=== PATIENT | male | born 1975 | race Caucasian/White ===

== ENCOUNTER 2017-09-23 16:49 | Emergency (ER) | payer SELFPAY ==
[~2017-09-23] VITALS: Ht 177.8 cm; Wt 85.0 kg
[2017-09-23] MEDS ORDERED: IOHEXOL 350 MG/ML 10 ML VIAL (for RAD DIAG) IVCONTRAST ONE (16:50)
--- NOTE | 2017-09-23 17:21 | PD ---
HPI Chief Complaint: Rectal bleeding, syncope Time Seen by Provider: 17:00 Travel History International Travel<30 days: No Contact w/Intl Traveler<30days: No History of Present Illness HPI 42-year-old male patient with family history of colon cancer, here because he states that he thinks he has rectal cancer, apparently states that he was told that this could be a possibility [place], and had come to the hospital today because he states that he started having rectal bleeding, dark blood in his underwear, bleeding about half a cup today, and had a syncopal episode hitting his head. He did have a loss consciousness, complaining of neck pain, denies any other injuries. Modifying Factors: None Associated Signs & Symptoms: Rectal bleeding, syncope Risk Factors: Family history of colon cancer PFSH Social History Tobacco Use: No Allergies-Medications (Allergen,Severity, Reaction): Coded Allergies: No Known Allergies (Unverified , 09/23/17) Review of Systems Except as stated in HPI: all other systems reviewed are Neg Physical Exam Narrative GENERAL: Well-developed middle-age male patient currently in mild distress. Awake and oriented 3. SKIN: Focused skin assessment warm/dry. HEAD: Atraumatic. Normocephalic. EYES: Pupils equal and round. No scleral icterus. No injection or drainage. ENT: No nasal bleeding or discharge. Mucous membranes pink and moist. NECK: Trachea midline. No JVD. Supple. CARDIOVASCULAR: Regular rate and rhythm. No murmur appreciated. RESPIRATORY: No accessory muscle use. Clear to auscultation. Breath sounds equal bilaterally. GASTROINTESTINAL: Abdomen soft, non-tender, nondistended. Hepatic and splenic margins not palpable. RECTAL EXAM: No masses or tenderness, stool is brown. Trace Hemoccult positive. MUSCULOSKELETAL: No obvious deformities. No clubbing. No cyanosis. No edema. NEUROLOGICAL: Awake and alert. No obvious cranial nerve deficits. Motor grossly within normal limits. Normal speech. PSYCHIATRIC: Appropriate mood and affect; insight and judgment normal. Data Data Last Documented VS Vital Signs Date Time Temp Pulse Resp B/P (MAP) Pulse Ox O2 Delivery O2 Flow Rate FiO2 09/23/17 17:49 97 Room Air 09/23/17 17:46 98.7 69 18 131/71 (91) Orders Orders Complete Blood Count With Diff (09/23/17 17:00) Comprehensive Metabolic Panel (09/23/17 17:00) Lipase (09/23/17 17:00) Prothrombin Time / Inr (Pt) (09/23/17 17:00) Act Partial Throm Time (Ptt) (09/23/17 17:00) Type And Screen (09/23/17 17:00) Ecg Monitoring (09/23/17 17:00) Iv Access Insert/Monitor (09/23/17 17:00) Oximetry (09/23/17 17:00) Ct Brain W/O Iv Contrast(Rout) (09/23/17 17:00) Ct Abd/Pel W Iv Contrast(Rout) (09/23/17 17:00) Ct Cerv Spine W/O Contrast (09/23/17 17:00) Electrocardiogram (09/23/17 17:00) Ckmb (Isoenzyme) Profile (09/23/17 17:00) Troponin I (09/23/17 17:00) Chest, Single Ap (09/23/17 17:00) CKMB (09/23/17 17:10) CKMB% (09/23/17 17:10) Iohexol 350 Inj (Omnipaque 350 Inj) (09/23/17 16:50) Acetaminophen (Tylenol) (09/23/17 18:45) Ed Discharge Order (09/23/17 18:48) Labs Laboratory Tests Test 09/23/17 17:10 White Blood Count 5.4 TH/MM3 Red Blood Count 4.94 MIL/MM3 Hemoglobin 15.9 GM/DL Hematocrit 44.1 % Mean Corpuscular Volume 89.3 FL Mean Corpuscular Hemoglobin 32.1 PG Mean Corpuscular Hemoglobin Concent 36.0 % Red Cell Distribution Width 13.4 % Platelet Count 259 TH/MM3 Mean Platelet Volume 6.6 FL Neutrophils (%) (Auto) 52.4 % Lymphocytes (%) (Auto) 35.8 % Monocytes (%) (Auto) 8.4 % Eosinophils (%) (Auto) 2.3 % Basophils (%) (Auto) 1.1 % Neutrophils # (Auto) 2.8 TH/MM3 Lymphocytes # (Auto) 1.9 TH/MM3 Monocytes # (Auto) 0.5 TH/MM3 Eosinophils # (Auto) 0.1 TH/MM3 Basophils # (Auto) 0.1 TH/MM3 CBC Comment DIFF FINAL Differential Comment Prothrombin Time 9.4 SEC Prothromb Time International Ratio 0.9 RATIO Activated Partial Thromboplast Time 23.1 SEC Blood Urea Nitrogen 11 MG/DL Creatinine 1.06 MG/DL Random Glucose 124 MG/DL Total Protein 7.2 GM/DL Albumin 3.8 GM/DL Calcium Level 9.0 MG/DL Alkaline Phosphatase 87 U/L Aspartate Amino Transf (AST/SGOT) 36 U/L Alanine Aminotransferase (ALT/SGPT) 59 U/L Total Bilirubin 0.2 MG/DL Sodium Level 140 MEQ/L Potassium Level 4.2 MEQ/L Chloride Level 104 MEQ/L Carbon Dioxide Level 24.6 MEQ/L Anion Gap 11 MEQ/L Estimat Glomerular Filtration Rate 76 ML/MIN Total Creatine Kinase 101 U/L Creatine Kinase MB 1.3 NG/ML Troponin I LESS THAN 0.02 NG/ML Lipase 196 U/L MDM Medical Decision Making Medical Screen Exam Complete: Yes Emergency Medical Condition: Yes Medical Record Reviewed: Yes Interpretation(s) EKG shows NSR, no ST elevation or depression, and no arrhythmias. No significant T-wave inversions. Laboratory Tests Test 09/23/17 17:10 Mean Platelet Volume 6.6 FL (7.0-11.0) Monocytes (%) (Auto) 8.4 % (0.0-8.0) Prothrombin Time 9.4 SEC (9.8-11.6) Activated Partial Thromboplast Time 23.1 SEC (24.3-30.1) Random Glucose 124 MG/DL (74-106) Estimat Glomerular Filtration Rate 76 ML/MIN (>89) Troponin I LESS THAN 0.02 NG/ML Differential Diagnosis GI bleed versus rectal or colon cancer versus hemorrhoidal bleeding Narrative Course Lab work and CAT scan was fairly unremarkable for any signs of acute processes. His H&H is stable and vital signs are stable. EKG did not show any signs of dysrhythmias. He has only trace positive Hemoccult. At this point, patient will need further workup for this issue and I will refer him to see colorectal regarding this problem. Return for any worsening in bleeding, further syncopal episodes, or new issues as needed. The plan has been discussed with him and he states understanding. [facility] Point of Care Internal Pos. & Neg. Controls: Passed Fecal Specimen Occult Blood: Positive (Only trace) Diagnosis Primary Impression: Syncope Additional Impression: Rectal bleeding Referrals: Taylor Hannah MD Disposition: 01 DISCHARGE HOME Condition: Stable Kurtis Doss MD Sep 23, 2017 17:21
[2017-09-23 17:27] LABS: AUTOMATED NEUTROPHIL # 2.8 TH/MM3 (1.8-7.7); BASOPHIL # 0.1 TH/MM3 (0-0.2); BASOPHIL % 1.1 % (0.0-2.0); EOSINOPHIL # 0.1 TH/MM3 (0-0.4); EOSINOPHIL % 2.3 % (0.0-4.0); HEMATOCRIT 44.1 % (39.0-51.0); HEMOGLOBIN 15.9 GM/DL (13.0-17.0); LYMPH % 35.8 % (9.0-44.0); LYMPHOCYTE # 1.9 TH/MM3 (1.0-4.8); MEAN CELL VOLUME 89.3 FL (80.0-100.0); MEAN CORPUSCULAR HEMOGLOBIN 32.1 PG (27.0-34.0); MEAN PLATELET VOLUME 6.6 FL (7.0-11.0); MONO % 8.4 % (0.0-8.0); MONOCYTE # 0.5 TH/MM3 (0-0.9); NEUT % 52.4 % (16.0-70.0); PLATELET COUNT 259 TH/MM3 (150-450); RED BLOOD COUNT 4.94 MIL/MM3 (4.50-5.90); RED CELL DISTRIBUTION WIDTH 13.4 % (11.6-17.2); WHITE BLOOD COUNT 5.4 TH/MM3 (4.0-11.0)
[2017-09-23 17:38] LABS: INTERNATIONAL NORMALIZED RATIO 0.9 RATIO; PROTHROMBIN TIME - PATIENT 9.4 SEC (9.8-11.6)
--- NOTE | 2017-09-23 17:45 | RADRPT ---
EXAM DATE/TIME: 09/23/2017 17:19 [facility] COMPARISON: No previous studies available for comparison. INDICATIONS : Syncope. Shortness of breath. MEDICAL HISTORY : None. SURGICAL HISTORY : None. ENCOUNTER: Initial ACUITY: 1 day PAIN SCORE: 0/10 LOCATION: Bilateral chest FINDINGS: A single view of the chest demonstrates the lungs to be symmetrically aerated without evidence of mas s, infiltrate or effusion. The cardiomediastinal contours are unremarkable. Osseous structures are intact. CONCLUSION: No acute disease. Jimbo Adam MD on September 23, 2017 at 17:42 Board Certified Radiologist. This report was verified electronically.
[2017-09-23 17:46] VITALS: BP 131/71; PULSE 69; RESP 18; TEMP 98.7; O2SAT 97
[2017-09-23 17:49] VITALS: O2SAT 97
[2017-09-23 17:49] LABS: ALT (GPT) 59 U/L (12-78)
[2017-09-23 17:53] LABS: ALKALINE PHOSPHATASE 87 U/L (45-117); TOTAL BILIRUBIN ADULT 0.2 MG/DL (0.2-1.0); TOTAL PROTEIN 7.2 GM/DL (6.4-8.2); TROPONIN I LESS THAN 0.02 NG/ML (0.02-0.05)
[2017-09-23 17:55] LABS: ALBUMIN 3.8 GM/DL (3.4-5.0); AST (GOT) 36 U/L (15-37); BICARBONATE 24.6 MEQ/L (21.0-32.0); BLOOD UREA NITROGEN 11 MG/DL (7-18); CHLORIDE 104 MEQ/L (98-107); CREATININE 1.06 MG/DL (0.60-1.30); GLOMERULAR FILTRATION RATE 76 ML/MIN (>89); GLUCOSE,RANDOM 124 MG/DL (74-106); SODIUM (NA) 140 MEQ/L (136-145)
--- NOTE | 2017-09-23 18:33 | RADRPT ---
EXAM DATE/TIME: 09/23/2017 18:13 [facility] COMPARISON: No previous studies available for comparison. INDICATIONS : Trauma, fall today. RADIATION DOSE: 55.68 CTDIvol (mGy) MEDICAL HISTORY : None SURGICAL HISTORY : None. ENCOUNTER: Initial ACUITY: 1 day PAIN SCALE: 5/10 LOCATION: Bilateral head TECHNIQUE: Multiple contiguous axial images were obtained of the head. Using automated exposure control and adj ustment of the mA and/or kV according to patient size, radiation dose was kept as low as reasonably a chievable to obtain optimal diagnostic quality images. DICOM format image data is available electro nically for review and comparison. FINDINGS: CEREBRUM: The ventricles are normal for age. No evidence of midline shift, mass lesion, hemorrhage or acute in farction. No extra-axial fluid collections are seen. POSTERIOR FOSSA: The cerebellum and brainstem are intact. The 4th ventricle is midline. The cerebellopontine angle i s unremarkable. EXTRACRANIAL: The visualized portion of the orbits is intact. SKULL: The calvaria is intact. No evidence of skull fracture. CONCLUSION: Normal examination. Jimbo Adam MD on September 23, 2017 at 18:29 Board Certified Radiologist. This report was verified electronically.
--- NOTE | 2017-09-23 18:43 | RADRPT ---
EXAM DATE/TIME: 09/23/2017 18:13 [facility] COMPARISON: No previous studies available for comparison. INDICATIONS : Trauma, fall today. RADIATION DOSE: 16.00 CTDIvol (mGy) MEDICAL HISTORY : None SURGICAL HISTORY : None. ENCOUNTER: Initial ACUITY: 1 day PAIN SCALE: 5/10 LOCATION: Bilateral neck TECHNIQUE: Volumetric scanning of the cervical spine was performed. Multiplanar reconstructions in the sagittal, coronal and oblique axial planes were performed. Using automated exposure control and adjustment o f the mA and/or kV according to patient size, radiation dose was kept as low as reasonably achievable to obtain optimal diagnostic quality images. DICOM format image data is available electronically f or review and comparison. FINDINGS: VERTEBRAE: Normal vertebral body height. ALIGNMENT: No evidence of subluxation. C2-C3: The bony spinal canal is normal in size. No evidence of disc bulge or herniation. The neural forami na are bilaterally patent. C3-C4: The bony spinal canal is normal in size. No evidence of disc bulge or herniation. The neural forami na are bilaterally patent. C4-C5: The bony spinal canal is normal in size. No evidence of disc bulge or herniation. The neural forami na are bilaterally patent. C5-C6: The bony spinal canal is normal in size. No evidence of disc bulge or herniation. The neural forami na are bilaterally patent. C6-C7: The disc demonstrates decreased height. There is mild bulging and osteophytic ridging. There is uncov ertebral hypertrophy. Bony spinal canal is normal in size. The neural foramina are bilaterally paten t. C7-T1: The bony spinal canal is normal in size. No evidence of disc bulge or herniation. The neural forami na are bilaterally patent. CONCLUSION: Degenerative change at the C6-C7 level. Jimbo Adam MD on September 23, 2017 at 18:38 Board Certified Radiologist. This report was verified electronically.
--- NOTE | 2017-09-23 18:44 | RADRPT ---
EXAM DATE/TIME: 09/23/2017 18:18 [facility] COMPARISON: No previous studies available for comparison. INDICATIONS : Rectal bleeding. IV CONTRAST: 97 cc Omnipaque 350 (iohexol) IV ORAL CONTRAST: No oral contrast ingested. RADIATION DOSE: 9.00 CTDIvol (mGy) MEDICAL HISTORY : None SURGICAL HISTORY : None. ENCOUNTER: Initial ACUITY: 1 month PAIN SCALE: 0/10 LOCATION: lower quadrant TECHNIQUE: Volumetric scanning of the abdomen and pelvis was performed. Using automated exposure control and ad justment of the mA and/or kV according to patient size, radiation dose was kept as low as reasonably achievable to obtain optimal diagnostic quality images. DICOM format image data is available electro nically for review and comparison. FINDINGS: LOWER LUNGS: The visualized lower lungs are clear. LIVER: 1 cm apparent cyst right lobe. There is no dilation of the biliary tree. No calcified gallstones. SPLEEN: Normal size without lesion. PANCREAS: Within normal limits. KIDNEYS: Normal in size and shape. There is no mass, stone or hydronephrosis. ADRENAL GLANDS: Within normal limits. VASCULAR: There is no aortic aneurysm. BOWEL/MESENTERY: The stomach, small bowel, and colon demonstrate no acute abnormality. There is no free intraperitone al air or fluid. ABDOMINAL WALL: Within normal limits. RETROPERITONEUM: There is no lymphadenopathy. BLADDER: No wall thickening or mass. REPRODUCTIVE: Within normal limits. No prostatic calcifications. INGUINAL: There is no lymphadenopathy or hernia. MUSCULOSKELETAL: Within normal limits for patient age. CONCLUSION: Negative for acute process. 1 cm hepatic cyst I don't see an etiology for the patient's rectal bleeding. Wilman Brand MD FACR on September 23, 2017 at 18:40 Board Certified Radiologist. This report was verified electronically.
[2017-09-23] MEDS ORDERED: ACETAMINOPHEN 500 MG CPLT PO ONE (18:45)
--- NOTE | 2017-09-24 19:41 | EKG ---
Date Performed: 09/23/2017 Time Performed: 17:53:23 PTAGE: 42 years EKG: Sinus rhythm MINIMAL VOLTAGE CRITERIA FOR LVH, CONSIDER NORMAL VARIANT Since the previous tracing, no significant change noted BORDERLINE ECG NO PREVIOUS TRACING DOCTOR: Eden Castro Interpretating Date/Time 09/24/2017 19:40:24
== END 2017-09-23 19:33 | disposition home or self-care (01) ==
LOC: NEPC 16:49
DX: R55 Syncope and collapse (principal); K62.5 Hemorrhage of anus and rectum; R94.31 Abnormal electrocardiogram [ECG] [EKG]
CPT/HCPCS: 70450; 71045; 72125; 74177; 80053; 82550; 82552; 83690; 84484; 85025; 85610; 85730; 86850; 86900; 86901; 93005; 99284; Q9967